=== PATIENT | female | born 1970 | race Caucasian/White ===

== ENCOUNTER 2017-04-16 13:04 | Day surgery (SDC) | payer OTHER ==
[~2017-04-16] VITALS: Ht 160 cm; Wt 60.6 kg
[2017-04-16 14:43] VITALS: Ht 160 cm; Wt 60.6 kg
[2017-04-16] MEDS ORDERED: RANITIDINE PO (14:56)
[2017-04-16 16:00] VITALS: BP 142/80; PULSE 105; RESP 15
[2017-04-16 17:03] VITALS: BP 91/58; RESP 20
[2017-04-16] MEDS ORDERED: MIDAZOLAM 1 MG/ML 2 ML INJ ONE ×3 (17:03→17:04)
[2017-04-16] MEDS ORDERED: FENTAnyl 50 MCG/ML VIAL ONE (17:03)
--- NOTE | 2017-04-18 05:20 | GILP ---
DATE OF PROCEDURE: 04/16/2017 PROCEDURE: Esophagogastroduodenoscopy with biopsies. BRIEF HISTORY AND INDICATIONS: The patient is being evaluated for abdominal pain. PREMEDICATION: Monitored anesthesia care by anesthesiologist. SURGEON: Marisa Vera MD. INSTRUMENT USED: Olympus panendoscope. TECHNIQUE: After informed consent, with the patient/relatives understanding the procedure, its indic ations, potential risks and complications, including but not limited to: allergic reaction, bleeding , perforation or infection, and after all pertinent questions were answered to the patients satisfac tion, the patient/relatives signed witnessed informed consent. Following this, premedication was administered slowly IV push under careful cardiovascular and respi ratory monitoring with pulse oximetry, automatic blood pressure and color television console monitor. Once the sedative effect was achieved the patient was place in the left lateral decubitus, the panen doscope was introduced and advanced under visual control. Careful examination of the upper gastrointestinal tract, both on insertion as well as withdrawal of the instrument disclosed the following findings: ESOPHAGUS: The mucosa of the entire esophagus appears within normal limits. There is no evidence of esophagitis, varices, neoplasm or stricture. No hiatal hernia identified. STOMACH: Upon entrance to the stomach, air was insufflated, the gastric rosario distended normally. There was moderate erythema and edema of the mucosa of the body and antrum of the stomach. Biopsies were obtained to rule out H. pylori infection. PYLORUS: The pylorus appears patent and within normal limits, with no evidence of gastric outlet ob struction. DUODENUM: The duodenal mucosa was carefully examined in the duodenal bulb as well as the second por tion of the duodenum and appears unremarkable with no evidence of duodenitis, ulcer or neoplasm. The instrument was then withdrawn, the patient tolerated the procedure well and was transfer out of the endoscopy suite awake, and in good condition to continue recovery under observation IMPRESSION: Moderate gastritis, rule out Helicobacter pylori infection, biopsies obtained. PLAN: The patient will be treated with PPIs. Further recommendation will depend on the patient's c linical course as well as review of biopsies. Dictated By: MARISA VERA MS/TREE Conf#: [id number] DID#: [id number]
== END 2017-04-16 19:44 | disposition home or self-care (01) ==
LOC: GIL 13:04
PROVIDERS: ATTEND Internal Medicine Gastroenterology
DX: K29.50 Unspecified chronic gastritis without bleeding (principal)
CPT/HCPCS: 43239; 88305; 88312; J2250; J3010; Z7610